=== PATIENT | male | born 1955 | race Caucasian/White ===

== ENCOUNTER 2017-02-26 10:18 | Inpatient (IN) | payer MEDICAID ==
[~2017-02-26] VITALS: Ht 172.7 cm; Wt 57.5 kg
[2017-02-26] MEDS ORDERED: ONDANSETRON 2MG/ML, 2ML IVPush ONE (11:00)
[2017-02-26] MEDS ORDERED: SODIUM CHLORIDE 0.9% 1,000ML IVBOLUS ONE (11:00)
[2017-02-26] MEDS ORDERED: MORPHINE SULFATE 4 MG/ML, 1ML IVPush PRN ×2 (11:00→17:30)
[2017-02-26] MEDS ORDERED: SODIUM CHLORIDE FLUSH 10ML SYR IVF ONE (11:00)
[2017-02-26] MEDS ORDERED: MORPHINE SULFATE 4 MG/ML, 1ML ONE (11:17)
[2017-02-26] MEDS ORDERED: ONDANSETRON 2MG/ML, 2ML ONE (11:17)
[2017-02-26] MEDS ORDERED: OXYC-229 PO (11:28)
[2017-02-26] MEDS ORDERED: MORP15TA39 PO (11:28)
[2017-02-26] MEDS ORDERED: HYDROmorphone 1 MG/ML, 1ML ONE ×3 (11:29→15:37)
[2017-02-26] MEDS: HYDROmorphone 1 MG/ML, 1ML IVPush PRN ×2 (11:34→11:56)
[2017-02-26 11:36] LABS: ASPARTATE AMINO TRANSFERASE 34 U/L (15-37); BLOOD UREA NITROGEN 8 mg/dL (7-18)
[2017-02-26] MEDS ORDERED: OMNIPAQUE 350 MG/ML, 100ML BOTTLE ONE (12:21)
[2017-02-26] MEDS ORDERED: CEFTRIAXONE PMX 1GM/50ML 50 ML IV ONE (14:00)
[2017-02-26] MEDS ORDERED: LORA-446 PO (14:21)
[2017-02-26] MEDS ORDERED: CEFTRIAXONE PMX 1GM/50ML 50 ML ONE (14:21)
[2017-02-26] MEDS ORDERED: AMLO10TA2 PO (14:21)
[2017-02-26 16:00] VITALS: BP 120/82
[2017-02-26] MEDS ORDERED: HYDROmorphone 1 MG/ML, 1ML IVPush ONE (16:00)
[2017-02-26 19:02] VITALS: BP 101/68
[2017-02-26] MEDS ORDERED: morphine SULFATE 10 MG/ML, 1ML IVPush PRN (22:00)
[2017-02-26] MEDS ORDERED: LABETALOL 5MG/ML, 20ML IVPush PRN (22:00)
[2017-02-26] MEDS ORDERED: POLYETHYLENE GLYCOL 17 GM PACKET PO PRN (22:00)
[2017-02-26] MEDS ORDERED: LORazepam 1MG TABLET PO PRN (22:00)
[2017-02-26] MEDS ORDERED: ACETAMINOPHEN 325 MG TABLET PO PRN (22:00)
[2017-02-26] MEDS ORDERED: ENALAPRILAT 1.25 MG/ML, 2ML IVPush PRN (22:00)
[2017-02-26] MEDS ORDERED: BISACODYL 10 MG SUPP PR PRN (22:00)
[2017-02-26] MEDS ORDERED: ONDANSETRON 2MG/ML, 2ML IVPush PRN (22:00)
[2017-02-26] MEDS: SODIUM CHLORIDE 0.9% 1,000 ML IV SCH (22:56)
[2017-02-26] MEDS: OXYcodone IR 5MG TABLET PO PRN (22:56)
[2017-02-26] MEDS: HEPARIN 5,000 UNITS/ML, 1ML SQ SCH (22:57)
[2017-02-27 02:17] VITALS: BP 114/63
[2017-02-27] MEDS: CEFTRIAXONE PMX 1GM/50ML 50 ML IV SCH ×2 (02:22→15:05)
[2017-02-27] MEDS: HEPARIN 5,000 UNITS/ML, 1ML SQ SCH ×2 (04:42→15:05)
[2017-02-27] MEDS: OXYcodone IR 5MG TABLET PO PRN ×3 (04:42→19:13)
[2017-02-27] MEDS: SODIUM CHLORIDE 0.9% 1,000 ML IV SCH ×2 (06:39→15:05)
[2017-02-27 07:09] LABS: BLOOD UREA NITROGEN 6 mg/dL (7-18)
[2017-02-27 07:10] LABS: ASPARTATE AMINO TRANSFERASE 32 U/L (15-37)
[2017-02-27 07:48] VITALS: BP 113/67
[2017-02-27] MEDS: AMLODIPINE 5 MG TABLET PO SCH (08:50)
[2017-02-27] MEDS: SENNA/DOCUSATE TABLET PO SCH (08:50)
[2017-02-27] MEDS: TAMSULOSIN 0.4 MG CAP.ER.24H PO SCH (11:50)
[2017-02-27] MEDS: OXYcodone/APAP 10/325MG TABLET PO SCH ×3 (11:50→20:59)
[2017-02-27 12:59] VITALS: BP 125/68
[2017-02-27 20:15] VITALS: BP 120/69
[2017-02-28] MEDS: CEFTRIAXONE PMX 1GM/50ML 50 ML IV SCH ×2 (02:02→15:04)
[2017-02-28] MEDS: OXYcodone IR 5MG TABLET PO PRN ×3 (03:09→23:00)
[2017-02-28 03:43] VITALS: BP 122/66
[2017-02-28] MEDS: OXYcodone/APAP 10/325MG TABLET PO SCH ×4 (06:14→20:53)
[2017-02-28] MEDS: HEPARIN 5,000 UNITS/ML, 1ML SQ SCH ×3 (06:15→20:56)
[2017-02-28 07:38] VITALS: BP 115/72
[2017-02-28] MEDS: TAMSULOSIN 0.4 MG CAP.ER.24H PO SCH (09:41)
[2017-02-28] MEDS: SENNA/DOCUSATE TABLET PO SCH (09:42)
[2017-02-28] MEDS: AMLODIPINE 5 MG TABLET PO SCH (09:42)
[2017-02-28 15:07] VITALS: BP 130/77
[2017-02-28 20:34] VITALS: BP 114/71
[2017-02-28] MEDS: AMPICILLIN 500 MG in SODIUM CHLORIDE 0.9% 50 ML IV SCH (21:40)
[2017-03-01 01:50] VITALS: BP 119/72
[2017-03-01] MEDS: CEFTRIAXONE PMX 1GM/50ML 50 ML IV SCH (02:26)
[2017-03-01] MEDS: AMPICILLIN 500 MG in SODIUM CHLORIDE 0.9% 50 ML IV SCH ×2 (03:34→09:56)
[2017-03-01] MEDS: OXYcodone IR 5MG TABLET PO PRN (04:18)
[2017-03-01] MEDS: HEPARIN 5,000 UNITS/ML, 1ML SQ SCH (06:05)
[2017-03-01] MEDS: OXYcodone/APAP 10/325MG TABLET PO SCH (06:05)
[2017-03-01 07:17] VITALS: BP 111/66
[2017-03-01] MEDS ORDERED: CEPH-368 PO (09:20)
[2017-03-01] MEDS ORDERED: AMOX1TAB64 PO (09:20)
[2017-03-01] MEDS ORDERED: SENN1TAB7 PO (09:20)
[2017-03-01] MEDS ORDERED: TAMS-11 PO (09:20)
[2017-03-01] MEDS ORDERED: LACT1CAP24 PO (09:45)
[2017-03-01] MEDS: TAMSULOSIN 0.4 MG CAP.ER.24H PO SCH (09:56)
[2017-03-01] MEDS: SENNA/DOCUSATE TABLET PO SCH (09:57)
[2017-03-01] MEDS: AMLODIPINE 5 MG TABLET PO SCH (09:57)
== END 2017-03-01 13:07 | disposition home or self-care (01) | DRG 727 ==
LOC: ED 14:01 → EDIP 14:02 → ED 14:09 → 3NW 15:47 → 3NE 19:36
PROVIDERS: ADMIT Internal Medicine; ATTEND Internal Medicine
DX: N45.1 Epididymitis (principal); E43 Unspecified severe protein-calorie malnutrition; N39.0 Urinary tract infection, site not specified; Z68.1 Body mass index [BMI] 19.9 or less, adult; I10 Essential (primary) hypertension; G89.29 Other chronic pain; M54.9 Dorsalgia, unspecified; F41.9 Anxiety disorder, unspecified; F17.210 Nicotine dependence, cigarettes, uncomplicated; N40.1 Benign prostatic hyperplasia with lower urinary tract symptoms; R33.8 Other retention of urine; B95.2 Enterococcus as the cause of diseases classified elsewhere; B96.1 Klebsiella pneumoniae [K. pneumoniae] as the cause of diseases classified elsewhere; Z88.8 Allergy status to other drugs, medicaments and biological substances
CPT/HCPCS: 36415; 51702; 74177; 76870; 80053; 80061; 81001; 83036; 83690; 83735; 84443; 85025; 87040; 87077; 87086; 87186; 87324; 89055; 93005; 93975; 96361; 96365; 96375; J0696; J1170; J1644; J2405; Q9967; J0290; J7030